=== PATIENT | male | born 1980 | race American Indian/Alaskan Native ===

== ENCOUNTER 2021-10-12 22:30 | Emergency (ER) | payer SELFPAY ==
[2021-10-12] MEDS ORDERED: ZIPRASIDONE MESYLATE 20 MG VIAL IM ONE (22:33)
--- NOTE | 2021-10-12 22:39 | ED Elopement Review ---
ED Pt Elopement review - Results review Lab results: I performed screening exam. I spoke with public safety police. seismology technical officer stated that patient stated that he took "lean". He was agitated but directable. Patient eloped prior to further treatment.
== END 2021-10-12 22:35 | disposition left against medical advice (07) ==
LOC: ED 22:30
DX: F06.2 Psychotic disorder with delusions due to known physiological condition (principal); Z53.21 Procedure and treatment not carried out due to patient leaving prior to being seen by health care provider

== ENCOUNTER 2021-10-14 00:13 | Inpatient (IN) | payer SELFPAY ==
[2021-10-14] MEDS ORDERED: diphenhydrAMINE 50 MG/ML VIAL IM ONE (00:45)
[2021-10-14] MEDS ORDERED: HALOPERIDOL LACTATE 5 MG/1 ML INJ IM ONE ×2 (00:45→23:37)
[2021-10-14] MEDS ORDERED: MIDAZOLAM 2 MG/2 ML INJ IM ONE (00:45)
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
[2021-10-14] MEDS ORDERED: SODIUM CHLORIDE 0.9% 1000 ML 1,000 ML IV ONE ×2 (01:14→02:39)
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
[2021-10-14 02:04] LABS: Hematocrit 43.1 % (35.5-45.6); Mean Corpuscular HGB Conc 32 % (32-34); Mean Corpuscular Volume 97 fl (84-94); Platelet Count 216 K/mm3 (140-440); Red Blood Count 4.45 M/mm3 (3.65-5.03); Red Cell Distribution Width 13.6 % (13.2-15.2)
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
[2021-10-14 02:13] LABS: INR 0.93 (0.87-1.13)
[2021-10-14 02:28] LABS: Albumin 4.9 g/dL (3.9-5)
[2021-10-14] MEDS ORDERED: DEXTROSE 50% IN WATER (25GM) 50 ML SYRINGE IV ONE (02:58)
[2021-10-14 03:25] LABS: Amphetamine Screen,Urine PRESUMPTIVE NEGATIVE; Benzodiazepines Screen,Urine PRESUMPTIVE NEGATIVE; Cannabinoid Screen,Urine PRESUMPTIVE NEGATIVE; Cocaine Screen,Urine PRESUMPTIVE NEGATIVE; Methadone Screen,Urine PRESUMPTIVE NEGATIVE; Opiate Screen,Urine PRESUMPTIVE NEGATIVE
[2021-10-14 03:29] LABS: Amorphous Crystals,Urine 3+; Bacteria,Urine 1+ /HPF (Negative); Bilirubin,Urine NEG (Negative); Blood,Urine LG (Negative); Calcium Oxalate Crystals,Urine 3+; Color,Urine Yellow (Yellow); Granular Casts,Urine 77 /LPF; Hyaline Casts,Urine 229 /LPF; Mucus,Urine FEW /HPF; Urobilinogen,Urine < 2.0 mg/dL (<2.0)
[2021-10-14] MEDS ORDERED: ACETAMINOPHEN 325 MG TAB PO PRN (04:22)
[2021-10-14] MEDS ORDERED: ONDANSETRON 4 MG/2 ML INJ IV PRN (04:22)
[2021-10-14] MEDS ORDERED: MAGNESIUM HYDROXIDE (MOM) ORAL LIQD UDC PO PRN (04:22)
[2021-10-14] MEDS ORDERED: MORPHINE 2 MG/1 ML INJ IV PRN (04:22)
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
[2021-10-14 04:42] LABS: Band Neutrophils # (Manual) 3.5 K/mm3; Myelocytes # (Manual) 0.2 K/mm3; Total Cells Counted 100
[2021-10-14 04:43] LABS: Platelet Estimate Consistent w Auto
--- NOTE | 2021-10-14 05:02 | Ultrasound Report ---
LIMITED RUQ ABDOMINAL ULTRASOUND INDICATION / CLINICAL INFORMATION: elevated lfts. COMPARISON: No relevant prior imaging study available. FINDINGS: PANCREAS: Visualized portions of the pancreas are within normal limits. ABDOMINAL AORTA: No significant abnormality. IVC: No significant abnormality. LIVER: The liver measures 13.9 cm in length. The liver demonstrates a normal echogenicity and morpho logy. PORTAL VEIN: Normal hepatopedal blood flow in the main portal vein. GALLBLADDER: The gallbladder is unremarkable. There is no cholelithiasis, gallbladder wall thickening , or pericholecystic fluid. BILE DUCTS: No significant abnormality. Common bile duct measures 4 mm. FREE FLUID: None. ADDITIONAL FINDINGS: None. IMPRESSION: No significant sonographic abnormality of the right upper quadrant. Signer Name: Carlos Mulligan MD Signed: 10/14/2021 4:58 AM Workstation Name: [id number]
[2021-10-14] MEDS ORDERED: cefTRIAXone/NS 1 GM/50 ML 1 GM/50 ML BAG IV ONE (05:04)
[2021-10-14 05:54] LABS: Hepatitis C Virus Antibody Non-Reactive (NonReactive)
[2021-10-14 05:59] LABS: Hepatitis B Surface Antigen Nonreactive (Negative)
[2021-10-14] MEDS: SODIUM CHLORIDE 0.9% 1000 ML 1,000 ML IV SCH ×3 (06:56→20:27)
[2021-10-14] MEDS: MORPHINE 4 MG/1 ML INJ IV PRN ×3 (08:31→19:10)
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
[2021-10-14 13:49] LABS: Protein/Creatinine Ratio,Urine 0.38
[2021-10-14] MEDS: HEPARIN 5,000 UNIT/1 ML VIAL SUB-Q SCH ×2 (14:24→21:33)
[2021-10-14] MEDS ORDERED: LORazepam 2 MG/ML VIAL IV ONE (22:37)
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
[2021-10-15] MEDS: HEPARIN 5,000 UNIT/1 ML VIAL SUB-Q SCH ×2 (05:49→13:08)
[2021-10-15] MEDS: cefTRIAXone/NS 1 GM/50 ML 1 GM/50 ML BAG IV SCH (05:54)
[2021-10-15 06:34] LABS: Basophils % (Auto) 0.1 % (0.0-1.8); Eosinophils % (Auto) 0.1 % (0.0-4.3); Hemoglobin 12.4 gm/dl (11.8-15.2); Lymphocytes # (Auto) 1.2 K/mm3 (1.2-5.4); Lymphocytes % (Auto) 12.2 % (13.4-35.0); Mean Corpuscular HGB Conc 33 % (32-34); Mean Corpuscular Volume 97 fl (84-94); Monocytes # (Auto) 0.6 K/mm3 (0.0-0.8); Monocytes % (Auto) 5.7 % (0.0-7.3); Platelet Count 202 K/mm3 (140-440); Red Blood Count 3.83 M/mm3 (3.65-5.03); Red Cell Distribution Width 13.7 % (13.2-15.2)
[2021-10-15 06:42] LABS: Alanine Aminotransferase 144 units/L (7-56); Albumin 3.7 g/dL (3.9-5); BUN/Creatinine Ratio 27; Blood Urea Nitrogen 30 mg/dL (9-20); Calcium 8.2 mg/dL (8.4-10.2); Hemolysis Index 5
[2021-10-15 06:47] LABS: Bilirubin,Direct < 0.2 mg/dL (0-0.2)
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
[2021-10-15] MEDS ORDERED: POTASSIUM CHLORIDE ER 20 MEQ TAB PO NR (08:24)
--- NOTE | 2021-10-15 11:38 | Ultrasound Report ---
Renal ultrasound INDICATION: Acute renal failure FINDINGS: The right kidney measures 15 cm in length and left measures about 11 cm in length. No hydro nephrosis. Urinary bladder is fluid distended IMPRESSION: No acute findings. Signer Name: Luther Roth MD Signed: 10/15/2021 11:34 AM Workstation Name: [id number]
--- NOTE | 2021-10-15 12:39 | Progress Note ---
Subjective - Reason for Consult Consult date: 10/15/21 Reason for consult: mental health evaluation - Chief Complaint Chief complaint: The patient is a 40 year old male with history of schizophrenia and bipolar disorder. In my interview with the patient, he presents with paranoia, flight of ideas and hyperverbal. The patient states " I was working into the street and a police pulled me off." He reports that he had been stressed for the past three days, when asked what, he states he did not want to discuss details but describes being thrown in a den of snakes. He reports noncompliant with psychotropic medication, stating he last took meds about a year ago because he did not need it. The patient is not receptive to starting psychotropic medications. He denies any current suicidal homicidal ideation and denies hallucinations. PAST PSYCHIATRIC HISTORY Diagnoses: Schizophrenia, Bipolar Suicide attempts or Self-harm behavior: Yes Prior psychiatric hospitalizations:Yes Substance Abuse history: Denies Previous psychiatric medications tried:unable to recall Outpatient treatment: unknown SOCIAL HISTORY Marital Status: Single Living Arrangements: Lives with mother Employment Status:employed Access to guns/weapons: Denied Education: Bachelors History of Abuse: No Legal History: None reported REVIEW OF SYSTEMS Constitutional: Negative for weight loss ENT: Negative for stridor Respiratory: Negative for cough or hemoptysis All other systems reviewed and are negative MENTAL STATUS EXAMINATION General Appearance and Behavior: Age appropriate, dressed appropriately, calm and uncooperative Cooperation: cooperative Psychomotor Behavior: psychomotor normal Mood:"Ok" Affect and affective range: Incongruent with stated mood Thought Process: flight of ideas/circumstantial Thought Content: Paranoid Speech: Hyperverbal Suicidal Ideation: Denies Homicidal Ideation: Denies Hallucinations: Denies Delusions: Yes Impulse Control: Unimpaired Insight and Judgment: limited insight and poor judgment, Memory: Normal Attention: divided Orientation: Alert, oriented Assessment and Plan (1) Schizophrenia (2) Treatment plan continue 1013 Start Haldol 5mg po BID Start Depakote 250mg po BID Continue previous prescribed meds Risks, benefits and alternatives of medications discussed with the patient, questions answered and consent obtained from patient. PSYCHOTHERAPY: Supportive psychotherapy provided MEDICAL: Per primary team DELIRIUM PRECAUTIONS: Please re-orient patient frequently, keep lights on during the day, and minimize benzodiazepines and opiates as these medications could worsen patient's confusion. 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 Will follow. Thank you for the consult. Please contact with any questions and/or concerns. Case staffed with Dr. Arauz Medications and Allergies Mental Status Exam - Vital signs Last Vital Signs Temp 98.1 F 10/15/21 09:12 Pulse 85 10/15/21 09:12 Resp 20 10/15/21 09:12 BP 149/63 10/15/21 09:12 Pulse Ox 96 10/15/21 09:12
[2021-10-15] MEDS: HALOPERIDOL 5 MG TAB PO SCH ×2 (13:06→22:38)
[2021-10-15] MEDS: DIVALPROEX DR 250 MG TAB PO SCH ×2 (13:06→22:48)
--- NOTE | 2021-10-15 13:13 | Progress Note ---
Assessment and Plan # Acute Kidney Injury: creatinine 3.0 on arrival, no prior baseline, now improved to 1.0. Suspect due to drug ("lean") ingestion which is contributing to rhabdomyolysis, acidosis. - continue aggressive IVF resuscitation for presumed rhabdomyolysis; likely can transition to oral hydration if able - urinalysis reviewed, note blood, crystals; renal us WNL - tox panel WNL; would check for ethanol, isopropyl alcohol, etc-> pending - PTH WNL, UP/C WNL - defer serologies, send if renal function not improving - avoid nephrotoxins - renally dose meds - no immediate need for renal replacement therapy noted, continue supportive measures # Metabolic Acidosis, High Gap: likely drug induced + HERMELINDO # Rhabdomyolysis with Transminitis: continue aggressive IVF for now, CK is improving 73K->46K # Altered Mentation: likely drug induced, do agree with mental health evaluation as he is high risk for decompensation, elopement # Leukocytosis, Tachycardia: likely reactive Subjective Date of service: 10/15/21 Interval history: Resting this AM Objective - Exam Narrative Exam: Constitutional: no acute distress, drowsy but alert, agitated at times Head: NC/AT Neck: supple Lungs: clear to auscultation CV: RRR, no M/R/G Abdomen: soft, non-tender, bowel sounds present Back: nontender Extremities: no edema, pulses WNL Skin: intact Neuro: no focal deficits, drowsy, uncooperative and agitated - Vital Signs Vital signs: Vital Signs - 12hr 10/15/21 10/15/21 04:04 09:12 Temperature 98.4 F 98.1 F Pulse Rate 71 85 Respiratory 18 20 Rate Blood Pressure 111/51 149/63 O2 Sat by Pulse 97 96 Oximetry - Lab 10/15/21 05:02 10/15/21 05:02 Most recent lab results Calcium 8.2 mg/dL (8.4-10.2) L 10/15/21 05:02 Magnesium 3.30 mg/dL (1.7-2.3) H 10/14/21 02:06 Urine Creatinine 72.0 mg/dL (0.1-20.0) H 10/14/21 09:39 Urine Total Protein 27 mg/dL (5-11.8) H 10/14/21 09:39 Medications & Allergies - Medications Allergies/Adverse Reactions: Allergies No Known Allergies Allergy (Unverified 10/14/21 15:43) Active Medications: Generic Name Dose Route Start Last Admin Trade Name Freq PRN Reason Stop Dose Admin Divalproex Sodium 250 mg 10/15/21 13:00 10/15/21 13:[address] 250 Mg Tab PO 250 mg BID YESSY Administration Haloperidol 5 mg 10/15/21 13:00 10/15/21 13:06 Haloperidol 5 Mg Tab PO 5 mg BID YESSY Administration Heparin Sodium (Porcine) 5,000 unit 10/14/21 14:00 10/15/21 13:08 Heparin 5,000 Unit/1 Ml Vial SUB-Q 5,000 unit Q8HR YESSY Administration Sodium Chloride 1,000 mls @ 150 mls/hr 10/14/21 04:30 10/14/21 20:27 Nacl 0.9% 1000 Ml IV 150 mls/hr DIRECT YESSY Administration Ceftriaxone Sodium 1 gm in 50 mls @ 100 mls/hr 10/15/21 06:00 10/15/21 05:54 Rocephin/Ns 1 Gm/50 Ml IV 100 mls/hr Q24H YESSY Administration Protocol Magnesium Hydroxide 30 ml 10/14/21 04:22 Magnesium Hydroxide (Mom) Oral Liqd Udc PO Q4H PRN Constipation Ondansetron HCl 4 mg 10/14/21 04:22 Ondansetron 4 Mg/2 Ml Inj IV Q8H PRN Nausea And Vomiting Sodium Chloride 10 ml 10/14/21 10:00 10/15/21 09:00 Sodium Chloride 0.9% 10 Ml Flush Syringe IV 10 ml BID YESSY Administration Sodium Chloride 10 ml 10/14/21 04:22 Sodium Chloride 0.9% 10 Ml Flush Syringe IV PRN PRN LINE FLUSH
--- NOTE | 2021-10-15 16:20 | Gastroenterology Progress Note ---
Assessment and Plan Liver: pt presents w/ high lft's with negative serologies - suspect shock liver vs drug induced vs other - lft's much improved today - continue to follow lft's and serologies - no signs liver failure - no changes at this time - will follow Subjective Date of service: 10/15/21 Interval history: - no GI or liver related complaints overnight Objective - Constitutional Vitals: Temp Pulse Resp BP Pulse Ox 98.1 F 85 20 149/63 96 10/15/21 09:12 10/15/21 09:12 10/15/21 09:12 10/15/21 09:12 10/15/21 09:12 General appearance: no acute distress - EENT Eyes: PERRL - Respiratory Respiratory: bilateral: CTA - Cardiovascular Rhythm: regular Heart Sounds: Present: S1 & S2 - Gastrointestinal General gastrointestinal: Present: soft, non-tender, non-distended - Labs CBC & Chem 7: 10/15/21 05:02 10/15/21 05:02 Labs: Laboratory Results - last 24 hr 10/15/21 10/15/21 10/15/21 05:02 05:02 05:02 WBC 10.2 RBC 3.83 Hgb 12.4 Hct 37.0 D MCV 97 H MCH 32 MCHC 33 RDW 13.7 Plt Count 202 Lymph % (Auto) 12.2 L [place] % (Auto) 5.7 Eos % (Auto) 0.1 Baso % (Auto) 0.1 Lymph # (Auto) 1.2 [place] # (Auto) 0.6 Eos # (Auto) 0.0 Baso # (Auto) 0.0 Seg Neutrophils % 81.9 H Seg Neutrophils # 8.4 H Sodium 143 Potassium 3.1 L Chloride 105.4 Carbon Dioxide 23 D Anion Gap 18 BUN 30 H Creatinine 1.1 D Estimated GFR > 60 BUN/Creatinine Ratio 27 Glucose 144 H Osmolality Calcium 8.2 L Ferritin 475.3 H Total Bilirubin 0.50 Direct Bilirubin < 0.2 Indirect Bilirubin 0.3 AST 759 H ALT 144 H Alkaline Phosphatase 120 Total Creatine Kinase 87537 H Total Protein 7.0 Albumin 3.7 L Albumin/Globulin Ratio 1.1 TSH PTH Intact 10/15/21 10/15/21 10/15/21 05:02 13:13 13:13 WBC RBC Hgb Hct MCV MCH MCHC RDW Plt Count Lymph % (Auto) [place] % (Auto) Eos % (Auto) Baso % (Auto) Lymph # (Auto) [place] # (Auto) Eos # (Auto) Baso # (Auto) Seg Neutrophils % Seg Neutrophils # Sodium Potassium Chloride Carbon Dioxide Anion Gap BUN Creatinine Estimated GFR BUN/Creatinine Ratio Glucose Osmolality 304 Calcium Ferritin Total Bilirubin Direct Bilirubin Indirect Bilirubin AST ALT Alkaline Phosphatase Total Creatine Kinase Total Protein Albumin Albumin/Globulin Ratio TSH 0.446 PTH Intact 83.49 H
[2021-10-15] MEDS: SODIUM CHLORIDE 0.9% 1000 ML 1,000 ML IV SCH ×2 (16:23→22:49)
[2021-10-15] MEDS ORDERED: IBUPROFEN 800 MG TAB PO ONE (23:21)
[2021-10-16] MEDS: HEPARIN 5,000 UNIT/1 ML VIAL SUB-Q SCH ×4 (01:27→21:21)
[2021-10-16] MEDS: SODIUM CHLORIDE 0.9% 1000 ML 1,000 ML IV SCH (04:31)
[2021-10-16] MEDS: cefTRIAXone/NS 1 GM/50 ML 1 GM/50 ML BAG IV SCH (06:22)
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
[2021-10-16 09:52] LABS: Basophils % (Auto) 0.1 % (0.0-1.8); Eosinophils # (Auto) 0.1 K/mm3 (0.0-0.4); Eosinophils % (Auto) 0.6 % (0.0-4.3); Hematocrit 32.7 % (35.5-45.6); Hemoglobin 11.1 gm/dl (11.8-15.2); Lymphocytes # (Auto) 2.2 K/mm3 (1.2-5.4); Lymphocytes % (Auto) 26.4 % (13.4-35.0); Mean Corpuscular HGB Conc 34 % (32-34); Mean Corpuscular Volume 95 fl (84-94); Monocytes # (Auto) 0.8 K/mm3 (0.0-0.8); Platelet Count 198 K/mm3 (140-440); Red Blood Count 3.45 M/mm3 (3.65-5.03); Red Cell Distribution Width 13.4 % (13.2-15.2)
[2021-10-16 10:43] LABS: BUN/Creatinine Ratio 14; Blood Urea Nitrogen 10 mg/dL (9-20); Calcium 8.4 mg/dL (8.4-10.2)
[2021-10-16 10:56] LABS: Alanine Aminotransferase 142 units/L (7-56); Albumin 3.5 g/dL (3.9-5); Hemolysis Index 5
[2021-10-16] MEDS: DIVALPROEX DR 250 MG TAB PO SCH ×3 (11:05→21:22)
[2021-10-16] MEDS: IBUPROFEN 800 MG TAB PO PRN ×2 (11:09→19:45)
[2021-10-16] MEDS: HALOPERIDOL 5 MG TAB PO SCH ×2 (11:09→21:22)
[2021-10-16] MEDS: NICOTINE 21 MG/24 HR PATCH TD SCH (11:11)
--- NOTE | 2021-10-16 15:20 | Gastroenterology Progress Note ---
Subjective Date of service: 10/16/21 Interval history: GI: pt w/ increase lft's now improving - shock liver vs drug induced vs other w/ noted rhabdo - lft's improving with pt being stable - hapatitis serologies negative - continue to follow labs - avoid hepatotoxic drugs - Dr. Gilliam on this week, call if needed Objective - Constitutional Vitals: Temp Pulse Resp BP Pulse Ox 98.4 F 54 L 18 135/68 100 10/16/21 12:15 10/16/21 12:15 10/16/21 12:15 10/16/21 12:15 10/16/21 12:15 - Labs CBC & Chem 7: 10/16/21 08:57 10/16/21 08:57 Labs: Laboratory Results - last 24 hr 10/15/21 10/16/21 10/16/21 13:13 08:57 08:57 WBC 8.5 RBC 3.45 L Hgb 11.1 L Hct 32.7 L MCV 95 H MCH 32 MCHC 34 RDW 13.4 Plt Count 198 Lymph % (Auto) 26.4 [place] % (Auto) 9.0 H Eos % (Auto) 0.6 Baso % (Auto) 0.1 Lymph # (Auto) 2.2 [place] # (Auto) 0.8 Eos # (Auto) 0.1 Baso # (Auto) 0.0 Seg Neutrophils % 63.9 Seg Neutrophils # 5.4 Sodium Potassium Chloride Carbon Dioxide Anion Gap BUN Creatinine Estimated GFR BUN/Creatinine Ratio Glucose Osmolality 304 Calcium Total Bilirubin AST ALT Alkaline Phosphatase Total Creatine Kinase 38112 H Total Protein Albumin Albumin/Globulin Ratio 10/16/21 08:57 WBC RBC Hgb Hct MCV MCH MCHC RDW Plt Count Lymph % (Auto) [place] % (Auto) Eos % (Auto) Baso % (Auto) Lymph # (Auto) [place] # (Auto) Eos # (Auto) Baso # (Auto) Seg Neutrophils % Seg Neutrophils # Sodium 143 Potassium 3.6 Chloride 105.3 Carbon Dioxide 24 Anion Gap 17 BUN 10 Creatinine 0.7 L Estimated GFR > 60 BUN/Creatinine Ratio 14 Glucose 108 H Osmolality Calcium 8.4 Total Bilirubin 0.50 AST 661 H ALT 142 H Alkaline Phosphatase 109 Total Creatine Kinase Total Protein 6.7 Albumin 3.5 L Albumin/Globulin Ratio 1.1
--- NOTE | 2021-10-16 15:41 | Progress Note ---
Assessment and Plan # Acute Kidney Injury: creatinine 3.0 on arrival, no prior baseline, now improved to 1.0->0.7. Suspect due to drug ("lean") ingestion which is contributing to rhabdomyolysis, acidosis. - continue IVF resuscitation for presumed rhabdomyolysis; likely can transition to oral hydration if able - urinalysis reviewed, note blood, crystals; renal us WNL - tox panel WNL; would check for ethanol, isopropyl alcohol, etc-> pending - PTH WNL, UP/C WNL - defer serologies - avoid nephrotoxins - renally dose meds - no immediate need for renal replacement therapy noted, continue supportive measures # Metabolic Acidosis, High Gap: likely drug induced + HERMELINDO # Rhabdomyolysis with Transminitis: continue aggressive IVF for now, CK is improving 73K->46K->23K # Altered Mentation: likely drug induced, do agree with mental health evaluation as he is high risk for decompensation, elopement # Leukocytosis, Tachycardia: likely reactive Subjective Date of service: 10/16/21 Interval history: Resting this AM Events noted Objective - Exam Narrative Exam: Constitutional: no acute distress, drowsy but alert, agitated at times Head: NC/AT Neck: supple Lungs: clear to auscultation CV: RRR, no M/R/G Abdomen: soft, non-tender, bowel sounds present Back: nontender Extremities: no edema, pulses WNL Skin: intact Neuro: no focal deficits, drowsy, uncooperative and agitated - Vital Signs Vital signs: Vital Signs - 12hr 10/16/21 10/16/21 10/16/21 04:44 08:12 12:15 Temperature 98.8 F 98.1 F 98.4 F Pulse Rate 58 L 60 54 L Respiratory 18 18 18 Rate Blood Pressure 112/58 134/69 135/68 O2 Sat by Pulse 97 97 100 Oximetry - Lab 10/16/21 08:57 10/16/21 08:57 Most recent lab results Calcium 8.4 mg/dL (8.4-10.2) 10/16/21 08:57 Magnesium 3.30 mg/dL (1.7-2.3) H 10/14/21 02:06 Urine Creatinine 72.0 mg/dL (0.1-20.0) H 10/14/21 09:39 Urine Total Protein 27 mg/dL (5-11.8) H 10/14/21 09:39 Medications & Allergies - Medications Allergies/Adverse Reactions: Allergies No Known Allergies Allergy (Unverified 10/14/21 15:43) Active Medications: Generic Name Dose Route Start Last Admin Trade Name Freq PRN Reason Stop Dose Admin Divalproex Sodium 250 mg 10/15/21 13:00 10/16/21 11:[address] 250 Mg Tab PO Not Given BID YESYS Haloperidol 5 mg 10/15/21 13:00 10/16/21 11:09 Haloperidol 5 Mg Tab PO 5 mg BID YESSY Administration Heparin Sodium (Porcine) 5,000 unit 10/14/21 14:00 10/16/21 06:23 Heparin 5,000 Unit/1 Ml Vial SUB-Q Not Given Q8HR YESSY Sodium Chloride 1,000 mls @ 150 mls/hr 10/14/21 04:30 10/16/21 04:31 Nacl 0.9% 1000 Ml IV 150 mls/hr DIRECT YESSY Administration Ceftriaxone Sodium 1 gm in 50 mls @ 100 mls/hr 10/15/21 06:00 10/16/21 06:22 Rocephin/Ns 1 Gm/50 Ml IV 100 mls/hr Q24H YESSY Administration Protocol Ibuprofen 800 mg 10/16/21 09:48 10/16/21 11:09 Ibuprofen 800 Mg Tab PO 800 mg Q8H PRN Administration Pain, Mild (1-3) Magnesium Hydroxide 30 ml 10/14/21 04:22 Magnesium Hydroxide (Mom) Oral Liqd Udc PO Q4H PRN Constipation Nicotine 21 mg 10/16/21 10:00 10/16/21 11:11 Nicotine 21 Mg/24 Hr Patch TD 21 mg QDAY YESSY Administration Ondansetron HCl 4 mg 10/14/21 04:22 Ondansetron 4 Mg/2 Ml Inj IV Q8H PRN Nausea And Vomiting Sodium Chloride 10 ml 10/14/21 10:00 10/16/21 11:11 Sodium Chloride 0.9% 10 Ml Flush Syringe IV 10 ml BID YESSY Administration Sodium Chloride 10 ml 10/14/21 04:22 Sodium Chloride 0.9% 10 Ml Flush Syringe IV PRN PRN LINE FLUSH
[2021-10-17] MEDS: HEPARIN 5,000 UNIT/1 ML VIAL SUB-Q SCH ×4 (05:36→21:55)
[2021-10-17] MEDS: cefTRIAXone/NS 1 GM/50 ML 1 GM/50 ML BAG IV SCH (05:36)
[2021-10-17 06:24] LABS: Basophils % (Auto) 0.4 % (0.0-1.8); Eosinophils # (Auto) 0.1 K/mm3 (0.0-0.4); Eosinophils % (Auto) 0.9 % (0.0-4.3); Hematocrit 31.8 % (35.5-45.6); Hemoglobin 10.4 gm/dl (11.8-15.2); Lymphocytes # (Auto) 2.7 K/mm3 (1.2-5.4); Lymphocytes % (Auto) 31.7 % (13.4-35.0); Mean Corpuscular HGB Conc 33 % (32-34); Mean Corpuscular Volume 96 fl (84-94); Monocytes # (Auto) 0.7 K/mm3 (0.0-0.8); Monocytes % (Auto) 8.4 % (0.0-7.3); Platelet Count 204 K/mm3 (140-440); Red Blood Count 3.31 M/mm3 (3.65-5.03); Red Cell Distribution Width 13.3 % (13.2-15.2)
[2021-10-17 06:45] LABS: Blood Urea Nitrogen 13 mg/dL (9-20); Calcium 8.8 mg/dL (8.4-10.2); Hemolysis Index 10
[2021-10-17 06:47] LABS: BUN/Creatinine Ratio 19
--- NOTE | 2021-10-17 08:57 | Gastroenterology Progress Note ---
Assessment and Plan - Patient Problems (1) Elevated liver enzymes Current Visit: Yes Status: Acute Plan to address problem: - Serologies and US negative, and abnl LFTs likely due to rhabdomyolysis. - His LFTs and CPK as well as creatinine are markedly improved. - OK to discharge to facility (or home) per our service. - We will sign off; please call if needed. (2) Rhabdomyolysis Current Visit: Yes Status: Acute Subjective Date of service: 10/17/21 Principal diagnosis: Abnl LFT Interval history: The patient tolerated all of his breakfast without N/V. He denies abdominal pain or itching. No fevers recorded overnight. Objective - Constitutional Vitals: Temp Pulse Resp BP Pulse Ox 98.6 F 54 L 18 135/86 98 10/17/21 05:52 10/17/21 05:52 10/17/21 05:52 10/17/21 05:52 10/17/21 05:52 General appearance: no acute distress - EENT Eyes: PERRL, EOM intact - Respiratory Respiratory effort: normal Respiratory: bilateral: CTA - Cardiovascular Rhythm: regular Heart Sounds: Present: S1 & S2 - Gastrointestinal General gastrointestinal: Present: soft, non-tender, non-distended - Labs CBC & Chem 7: 10/17/21 05:56 10/17/21 05:56 Labs: Laboratory Results - last 24 hr 10/16/21 10/16/21 10/16/21 08:57 08:57 08:57 WBC 8.5 RBC 3.45 L Hgb 11.1 L Hct 32.7 L MCV 95 H MCH 32 MCHC 34 RDW 13.4 Plt Count 198 Lymph % (Auto) 26.4 [place] % (Auto) 9.0 H Eos % (Auto) 0.6 Baso % (Auto) 0.1 Lymph # (Auto) 2.2 [place] # (Auto) 0.8 Eos # (Auto) 0.1 Baso # (Auto) 0.0 Seg Neutrophils % 63.9 Seg Neutrophils # 5.4 Sodium 143 Potassium 3.6 Chloride 105.3 Carbon Dioxide 24 Anion Gap 17 BUN 10 Creatinine 0.7 L Estimated GFR > 60 BUN/Creatinine Ratio 14 Glucose 108 H Calcium 8.4 Total Bilirubin 0.50 AST 661 H ALT 142 H Alkaline Phosphatase 109 Total Creatine Kinase 62236 H Total Protein 6.7 Albumin 3.5 L Albumin/Globulin Ratio 1.1 10/17/21 10/17/21 05:56 05:56 WBC 8.6 RBC 3.31 L Hgb 10.4 L Hct 31.8 L MCV 96 H MCH 31 MCHC 33 RDW 13.3 Plt Count 204 Lymph % (Auto) 31.7 [place] % (Auto) 8.4 H Eos % (Auto) 0.9 Baso % (Auto) 0.4 Lymph # (Auto) 2.7 [place] # (Auto) 0.7 Eos # (Auto) 0.1 Baso # (Auto) 0.0 Seg Neutrophils % 58.6 Seg Neutrophils # 5.1 Sodium 145 Potassium 3.8 Chloride 107.2 H Carbon Dioxide 27 Anion Gap 15 BUN 13 Creatinine 0.7 L Estimated GFR > 60 BUN/Creatinine Ratio 19 Glucose 100 Calcium 8.8 Total Bilirubin AST ALT Alkaline Phosphatase Total Creatine Kinase 41423 H Total Protein Albumin Albumin/Globulin Ratio
[2021-10-17] MEDS: DIVALPROEX DR 250 MG TAB PO SCH ×2 (09:30→21:55)
[2021-10-17] MEDS: NICOTINE 21 MG/24 HR PATCH TD SCH (09:30)
[2021-10-17] MEDS: HALOPERIDOL 5 MG TAB PO SCH ×2 (09:30→21:55)
--- NOTE | 2021-10-17 09:43 | Progress Note ---
Assessment and Plan # Acute Kidney Injury: creatinine 3.0 on arrival, no prior baseline, now improved to 1.0->0.7. Suspect due to drug ("lean") ingestion which is contributing to rhabdomyolysis, acidosis. - continue IVF resuscitation for presumed rhabdomyolysis; - urinalysis reviewed, note blood, crystals; renal us WNL - tox panel WNL; would check for ethanol, isopropyl alcohol, etc-> pending - PTH WNL, UP/C WNL - defer serologies - avoid nephrotoxins - renally dose meds - no immediate need for renal replacement therapy noted, continue supportive measures # Metabolic Acidosis, High Gap: likely drug induced + HERMELINDO # Rhabdomyolysis with Transminitis: continue aggressive IVF for now, CK is improving 73K->46K->23K > 13K # Altered Mentation: likely drug induced, do agree with mental health evaluation as he is high risk for decompensation, elopement # Leukocytosis, resolved Subjective Date of service: 10/17/21 Principal diagnosis: Abnl LFT Interval history: Patient feels well today. Denies any shortness of breath. Putting out good amount of urine. Objective - Vital Signs Vital signs: Vital Signs - 12hr 10/17/21 10/17/21 01:57 05:52 Temperature 98.6 F Pulse Rate 54 L Respiratory 18 Rate Respiratory 17 Rate [ Generalized] Blood Pressure 135/86 [Left] O2 Sat by Pulse 98 Oximetry - General Appearance General appearance: well-developed, well-nourished, appears stated age EENT: ATNC Neck: no JVD, no thyromegaly, no carotid bruit, supple Respiratory: Present: Clear to Ascultation Cardiology: regular, normal heart rate, S1S2, no murmurs Gastrointestinal: normal, normoactive bowel sounds Integumentary: other (No edema) - Lab 10/17/21 05:56 10/17/21 05:56 Most recent lab results Calcium 8.8 mg/dL (8.4-10.2) 10/17/21 05:56 Magnesium 3.30 mg/dL (1.7-2.3) H 10/14/21 02:06 Urine Creatinine 72.0 mg/dL (0.1-20.0) H 10/14/21 09:39 Urine Total Protein 27 mg/dL (5-11.8) H 10/14/21 09:39 Medications & Allergies - Medications Allergies/Adverse Reactions: Allergies No Known Allergies Allergy (Unverified 10/14/21 15:43) Active Medications: Generic Name Dose Route Start Last Admin Trade Name Freq PRN Reason Stop Dose Admin Divalproex Sodium 250 mg 10/15/21 13:00 10/17/21 09:[address] 250 Mg Tab PO 250 mg BID YESSY Administration Haloperidol 5 mg 10/15/21 13:00 10/17/21 09:30 Haloperidol 5 Mg Tab PO 5 mg BID YESSY Administration Heparin Sodium (Porcine) 5,000 unit 10/14/21 14:00 10/17/21 05:36 Heparin 5,000 Unit/1 Ml Vial SUB-Q 5,000 unit Q8HR YESSY Administration Sodium Chloride 1,000 mls @ 150 mls/hr 10/14/21 04:30 10/16/21 04:31 Nacl 0.9% 1000 Ml IV 150 mls/hr DIRECT YESSY Administration Ceftriaxone Sodium 1 gm in 50 mls @ 100 mls/hr 10/15/21 06:00 10/17/21 05:36 Rocephin/Ns 1 Gm/50 Ml IV 100 mls/hr Q24H YESSY Administration Protocol Ibuprofen 800 mg 10/16/21 09:48 10/16/21 19:45 Ibuprofen 800 Mg Tab PO 800 mg Q8H PRN Administration Pain, Mild (1-3) Magnesium Hydroxide 30 ml 10/14/21 04:22 Magnesium Hydroxide (Mom) Oral Liqd Udc PO Q4H PRN Constipation Nicotine 21 mg 10/16/21 10:00 10/17/21 09:30 Nicotine 21 Mg/24 Hr Patch TD 21 mg QDAY YESSY Administration Ondansetron HCl 4 mg 10/14/21 04:22 Ondansetron 4 Mg/2 Ml Inj IV Q8H PRN Nausea And Vomiting Sodium Chloride 10 ml 10/14/21 10:00 10/17/21 09:30 Sodium Chloride 0.9% 10 Ml Flush Syringe IV 10 ml BID YESSY Administration Sodium Chloride 10 ml 10/14/21 04:22 Sodium Chloride 0.9% 10 Ml Flush Syringe IV PRN PRN LINE FLUSH
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
[2021-10-17] MEDS: SODIUM CHLORIDE 0.9% 1000 ML 1,000 ML IV SCH ×2 (11:41→21:56)
[2021-10-18] MEDS: HEPARIN 5,000 UNIT/1 ML VIAL SUB-Q SCH ×3 (05:50→21:54)
[2021-10-18] MEDS: cefTRIAXone/NS 1 GM/50 ML 1 GM/50 ML BAG IV SCH (05:50)
[2021-10-18 06:22] LABS: Basophils % (Auto) 0.3 % (0.0-1.8); Eosinophils # (Auto) 0.2 K/mm3 (0.0-0.4); Eosinophils % (Auto) 1.8 % (0.0-4.3); Hematocrit 31.7 % (35.5-45.6); Hemoglobin 10.5 gm/dl (11.8-15.2); Lymphocytes # (Auto) 3.1 K/mm3 (1.2-5.4); Lymphocytes % (Auto) 32.7 % (13.4-35.0); Mean Corpuscular HGB Conc 33 % (32-34); Mean Corpuscular Volume 97 fl (84-94); Monocytes # (Auto) 0.7 K/mm3 (0.0-0.8); Platelet Count 219 K/mm3 (140-440); Red Blood Count 3.25 M/mm3 (3.65-5.03); Red Cell Distribution Width 13.2 % (13.2-15.2)
[2021-10-18 06:40] LABS: BUN/Creatinine Ratio 18; Blood Urea Nitrogen 14 mg/dL (9-20); Calcium 8.8 mg/dL (8.4-10.2); Hemolysis Index 3
[2021-10-18] MEDS: SODIUM CHLORIDE 0.9% 1000 ML 1,000 ML IV SCH ×2 (09:03→16:23)
[2021-10-18] MEDS: DIVALPROEX DR 250 MG TAB PO SCH ×2 (09:03→21:54)
[2021-10-18] MEDS: HALOPERIDOL 5 MG TAB PO SCH ×2 (09:03→21:54)
[2021-10-18] MEDS: NICOTINE 21 MG/24 HR PATCH TD SCH (09:03)
--- NOTE | 2021-10-18 09:16 | Progress Note ---
Assessment and Plan Impression Acute Kidney Injury secondary to rhabomylosis related drug ingestion Rhambomylosis Metaboic acidosis Acute encephalopathy Plan: HERMELINDO resolved. lytes stable, acidosis improved, CK trending down; SCr now 0.8mg/dL. No indication for renal replacement therapy Continue IVF Daily labs Psychiatry consult pending Will follow peripherally Subjective Principal diagnosis: Abnl LFT Interval history: Patient is agitated. Wants to go home Objective - Vital Signs Vital signs: Vital Signs - 12hr 10/17/21 10/17/21 10/18/21 23:47 23:57 04:38 Temperature 98.2 F 97.9 F Pulse Rate 79 77 61 Respiratory 16 18 Rate Blood Pressure 141/78 Blood Pressure 145/77 [Left] O2 Sat by Pulse 98 99 96 Oximetry 10/18/21 08:34 Temperature 98.4 F Pulse Rate 50 L Respiratory 18 Rate Blood Pressure 143/73 Blood Pressure [Left] O2 Sat by Pulse 93 Oximetry - General Appearance General appearance: well-developed, well-nourished EENT: ATNC Respiratory: Present: Clear to Ascultation Cardiology: regular, S1S2 Gastrointestinal: normal, no tenderness, no distended Psychiatric: cooperative - Lab 10/18/21 04:46 10/18/21 04:46 Most recent lab results Calcium 8.8 mg/dL (8.4-10.2) 10/18/21 04:46 Magnesium 3.30 mg/dL (1.7-2.3) H 10/14/21 02:06 Urine Creatinine 72.0 mg/dL (0.1-20.0) H 10/14/21 09:39 Urine Total Protein 27 mg/dL (5-11.8) H 10/14/21 09:39 Medications & Allergies - Medications Allergies/Adverse Reactions: Allergies No Known Allergies Allergy (Unverified 10/14/21 15:43) Home Medications: Home Medications Medication Instructions Recorded Confirmed Last Taken Type No Known Home Medications [No 10/17/21 10/17/21 Unknown History Reported Home Medications] Active Medications: Generic Name Dose Route Start Last Admin Trade Name Freq PRN Reason Stop Dose Admin Divalproex Sodium 250 mg 10/15/21 13:00 10/18/21 09:[address] 250 Mg Tab PO 250 mg BID YESSY Administration Haloperidol 5 mg 10/15/21 13:00 10/18/21 09:03 Haloperidol 5 Mg Tab PO 5 mg BID YESSY Administration Heparin Sodium (Porcine) 5,000 unit 10/14/21 14:00 10/18/21 05:50 Heparin 5,000 Unit/1 Ml Vial SUB-Q 5,000 unit Q8HR YESSY Administration Sodium Chloride 1,000 mls @ 150 mls/hr 10/14/21 04:30 10/18/21 09:03 Nacl 0.9% 1000 Ml IV 150 mls/hr DIRECT YESSY Administration Ceftriaxone Sodium 1 gm in 50 mls @ 100 mls/hr 10/15/21 06:00 10/18/21 05:50 Rocephin/Ns 1 Gm/50 Ml IV 10/19/21 06:29 100 mls/hr Q24H YESSY Administration Protocol Ibuprofen 800 mg 10/16/21 09:48 10/16/21 19:45 Ibuprofen 800 Mg Tab PO 800 mg Q8H PRN Administration Pain, Mild (1-3) Magnesium Hydroxide 30 ml 10/14/21 04:22 Magnesium Hydroxide (Mom) Oral Liqd Udc PO Q4H PRN Constipation Nicotine 21 mg 10/16/21 10:00 10/18/21 09:03 Nicotine 21 Mg/24 Hr Patch TD 21 mg QDAY YESSY Administration Ondansetron HCl 4 mg 10/14/21 04:22 Ondansetron 4 Mg/2 Ml Inj IV Q8H PRN Nausea And Vomiting Sodium Chloride 10 ml 10/14/21 10:00 10/18/21 09:04 Sodium Chloride 0.9% 10 Ml Flush Syringe IV 10 ml BID YESSY Administration Sodium Chloride 10 ml 10/14/21 04:22 Sodium Chloride 0.9% 10 Ml Flush Syringe IV PRN PRN LINE FLUSH
--- NOTE | 2021-10-18 12:44 | Progress Note ---
Subjective - Reason for Consult Consult date: 10/18/21 Reason for consult: mental health evaluation - Chief Complaint Chief complaint: The patient was seen this morning, he is calm, alert and oriented x3. The patient states he is doing well. States sleep and appetite as good. The patient is lucid, he denies any current suicidal/homicidal ideation and denies hallucinations. The patient is not paranoid and no aggressive behaviors reported. REVIEW OF SYSTEMS Constitutional: Negative for weight loss ENT: Negative for stridor Respiratory: Negative for cough or hemoptysis All other systems reviewed and are negative MENTAL STATUS EXAMINATION General Appearance and Behavior: Age appropriate, dressed appropriately, calm and uncooperative Cooperation: cooperative Psychomotor Behavior: psychomotor normal Mood:"good" Affect and affective range: congruent with stated mood Thought Process: Goad directed Thought Content: Not suicidal Speech: Normal Suicidal Ideation: Denies Homicidal Ideation: Denies Hallucinations: Denies Delusions: None Impulse Control: Unimpaired Insight and Judgment: limited insight and poor fair Attention: divided Orientation: Alert, oriented Assessment and Plan (1) Schizophrenia (2) Treatment plan Discontinue 1013 Continue Haldol 5mg po BID Continue Depakote 250mg po BID Continue previous prescribed meds Risks, benefits and alternatives of medications discussed with the patient, questions answered and consent obtained from patient. PSYCHOTHERAPY: Supportive psychotherapy provided MEDICAL: Per primary team DELIRIUM PRECAUTIONS: Please re-orient patient frequently, keep lights on during the day, and minimize benzodiazepines and opiates as these medications could worsen patient's confusion. 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 Alignment Technician will provide the patient with psychiatric out-patient resources. Will sign off. Discharged from psych point of view. Please contact with any questions and/or concerns. Case staffed with Dr. Arauz Medications and Allergies Mental Status Exam - Vital signs Last Vital Signs Temp 98.8 F 10/18/21 11:10 Pulse 49 L 10/18/21 11:10 Resp 18 10/18/21 11:10 BP 148/90 10/18/21 11:10 Pulse Ox 96 10/18/21 11:10
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
[2021-10-18 22:00] LABS: ANA Screen, IFA Negative (Negative)
[2021-10-19] MEDS: cefTRIAXone/NS 1 GM/50 ML 1 GM/50 ML BAG IV SCH (05:58)
[2021-10-19] MEDS: SODIUM CHLORIDE 0.9% 1000 ML 1,000 ML IV SCH (05:59)
[2021-10-19] MEDS: HEPARIN 5,000 UNIT/1 ML VIAL SUB-Q SCH ×2 (05:59→13:40)
[2021-10-19 06:04] LABS: Basophils % (Auto) 0.3 % (0.0-1.8); Eosinophils # (Auto) 0.2 K/mm3 (0.0-0.4); Eosinophils % (Auto) 1.6 % (0.0-4.3); Hematocrit 32.7 % (35.5-45.6); Hemoglobin 10.7 gm/dl (11.8-15.2); Lymphocytes # (Auto) 3.4 K/mm3 (1.2-5.4); Lymphocytes % (Auto) 30.5 % (13.4-35.0); Mean Corpuscular HGB Conc 33 % (32-34); Mean Corpuscular Volume 96 fl (84-94); Monocytes # (Auto) 0.8 K/mm3 (0.0-0.8); Monocytes % (Auto) 6.9 % (0.0-7.3); Platelet Count 246 K/mm3 (140-440); Red Blood Count 3.42 M/mm3 (3.65-5.03); Red Cell Distribution Width 13.3 % (13.2-15.2)
[2021-10-19 06:15] LABS: BUN/Creatinine Ratio 13; Blood Urea Nitrogen 12 mg/dL (9-20); Hemolysis Index 5
[2021-10-19] MEDS: NICOTINE 21 MG/24 HR PATCH TD SCH (09:27)
[2021-10-19] MEDS: HALOPERIDOL 5 MG TAB PO SCH (09:27)
[2021-10-19] MEDS: DIVALPROEX DR 250 MG TAB PO SCH (09:27)
[2021-10-19] MEDS ORDERED: POTASSIUM CHLORIDE ER 20 MEQ TAB PO SCH (10:00)
[2021-10-19 12:32] VITALS: BP 144/75
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
[2021-10-19 17:58] LABS: Alanine Aminotransferase 119 units/L (7-56)
== END 2021-10-19 16:30 | disposition home or self-care (01) | DRG 871 ==
LOC: ED 00:13 → SUATTDRO 00:13 → 4A 08:16
PROVIDERS: ADMIT Internal Medicine Geriatric Medicine; ATTEND Internal Medicine
DX: A41.9 Sepsis, unspecified organism (principal); G92.8 Other toxic encephalopathy; N39.0 Urinary tract infection, site not specified; N17.8 Other acute kidney failure; M62.82 Rhabdomyolysis; E87.2 Acidosis; R65.20 Severe sepsis without septic shock; F20.9 Schizophrenia, unspecified; E87.6 Hypokalemia; E66.9 Obesity, unspecified; Z68.35 Body mass index [BMI] 35.0-35.9, adult; Z20.822 Contact with and (suspected) exposure to COVID-19
CPT/HCPCS: 36415; 70450; 71045; 72125; 72170; 76705; 76770; 80048; 80053; 80074; 80076; 80307; 80320; 81001; 82550; 82570; 82693; 82728; 82805; 83520; 83735; 83930; 83970; 84156; 84443; 84450; 84460; 84484; 85007; 85025; 85610; 86038; 87086; 93005; G0378; J3490; Q0162; G0480; J0696; J1200; J1630; J1644; J2060; J2250; J2270; J7030